=== PATIENT | male | born 1960 | race African-American/Black ===

== ENCOUNTER 2018-12-27 08:59 | Emergency (ER) | payer SELFPAY ==
[~2018-12-27] VITALS: Ht 175.3 cm; Wt 77.0 kg
[2018-12-27 09:42] VITALS: BP 177/87
[2018-12-27] MEDS ORDERED: NALOXONE HCL 1 MG/ML 2ML VIAL IV ONE (09:45)
[2018-12-27 09:54] LABS: CLARITY URINE CLEAR (CLEAR); COLOR URINE YELLOW (YELLOW); KETONES URINE NEGATIVE (NEGATIVE); LEUKOCYTE ESTERASE URINE 1+ (NEGATIVE); NITRITE URINE NEGATIVE (NEGATIVE); OCCULT BLOOD URINE 1+ (NEGATIVE); PROTEIN URINE NEGATIVE (NEGATIVE); SPECIFIC GRAVITY URINE 1.026 (1.005-1.030)
[2018-12-27 09:56] LABS: BASOPHILS % 0.7 % (0.0-2.0); CHLORIDE 104 mEq/L (98-107); EOSINOPHILS % 4.2 % (0.0-5.0); HEMATOCRIT. 41.3 % (42.0-52.0); HEMOGLOBIN. 13.6 g/dL (14.0-18.0); LYMPHOCYTES % 18.7 % (20.0-50.0); MEAN CORPUSCULAR HEMOGLOBIN 30.9 pg (28.0-32.0); MEAN CORPUSCULAR VOLUME 93.8 fL (80.0-94.0); MEAN PLATELET VOLUME 8.1 fl (7.4-10.4); MONOCYTES % 11.6 % (2.0-8.0); NEUTROPHILS % 64.8 % (40.0-76.0); PLATELET 299 x1000/uL (130-400); RED CELL DISTRIBUTION WIDTH 13.4 % (11.6-14.6)
[2018-12-27 10:03] LABS: ETHANOL BLOOD < 10 mg/dL
[2018-12-27 10:14] LABS: *BARBITURATES SCREEN URINE NEGATIVE (NEGATIVE); *COCAINE SCREEN URINE PRESUMTIVE POSITIVE (NEGATIVE)
[2018-12-27 10:15] LABS: *AMPHETAMINES SCREEN URINE NEGATIVE (NEGATIVE); *BENZODIAZEPINES SCREEN URINE NEGATIVE (NEGATIVE); METHADONE URINE SCREEN NEGATIVE (NEGATIVE); OPIATES URINE SCREEN NEGATIVE (NEGATIVE); PHENCYCLIDINE URINE SCREEN NEGATIVE (NEGATIVE)
[2018-12-27 10:16] LABS: CANNABINOID URINE SCREEN NEGATIVE (NEGATIVE)
[2018-12-27] MEDS ORDERED: POTASSIUM CHLORIDE 20MEQ TABLET SR PO ONE (11:00)
== END 2018-12-27 15:07 | disposition left against medical advice (07) ==
LOC: EDBD 09:08 → ER 09:08
DX: G93.40 Encephalopathy, unspecified (principal); N39.0 Urinary tract infection, site not specified; Z79.899 Other long term (current) drug therapy
CPT/HCPCS: 36415; 80053; 80305; 80307; 80329; 81003; 85025; 87186; 99283; J2310

== ENCOUNTER 2019-06-02 15:38 | Emergency (ER) | payer OTHER ==
[~2019-06-02] VITALS: Ht 185.4 cm; Wt 88.0 kg
[2019-06-02 15:48] VITALS: BP 136/88
== END 2019-06-02 17:47 | disposition left against medical advice (07) ==
LOC: ER 16:31
DX: M79.675 Pain in left toe(s) (principal); Z53.21 Procedure and treatment not carried out due to patient leaving prior to being seen by health care provider

== ENCOUNTER 2019-06-02 21:00 | Emergency (ER) | payer MEDICAID, OTHER ==
[~2019-06-02] VITALS: Ht 185.4 cm; Wt 73.0 kg
[2019-06-02 21:01] VITALS: BP 169/95
== END 2019-06-02 22:37 | disposition left against medical advice (07) ==
LOC: ER 22:30
DX: M79.89 Other specified soft tissue disorders (principal); Z53.21 Procedure and treatment not carried out due to patient leaving prior to being seen by health care provider

== ENCOUNTER 2019-06-03 04:38 | Emergency (ER) | payer MEDICAID ==
[~2019-06-03] VITALS: Ht 185.4 cm; Wt 73.0 kg
[2019-06-03 04:41] VITALS: BP 170/86
[2019-06-03] MEDS ORDERED: ACETAMINOPHEN 500MG TABLET PO ONE (06:15)
== END 2019-06-03 08:02 | disposition home or self-care (01) ==
LOC: ER 04:38
DX: S90.32XA Contusion of left foot, initial encounter (principal); M19.90 Unspecified osteoarthritis, unspecified site; F17.210 Nicotine dependence, cigarettes, uncomplicated; V03.90XA Pedestrian on foot injured in collision with car, pick-up truck or van, unspecified whether traffic or nontraffic accident, initial encounter; Y93.89 Activity, other specified; Y92.524 Gas station as the place of occurrence of the external cause
CPT/HCPCS: 73630; 99283

== ENCOUNTER 2022-05-10 05:18 | Emergency (ER) | payer MEDICAID ==
[~2022-05-10] VITALS: Ht 172.7 cm; Wt 78.0 kg
[2022-05-10] MEDS ORDERED: IBUPROFEN 600MG TABLET PO STA (05:35)
[2022-05-10] MEDS ORDERED: IBUP-2029 MT (09:45)
[2022-05-10 11:13] VITALS: BP 149/81
== END 2022-05-10 09:43 | disposition home or self-care (01) ==
LOC: ER 05:18
DX: S06.9X9A Unspecified intracranial injury with loss of consciousness of unspecified duration, initial encounter (principal); Y04.0XXA Assault by unarmed brawl or fight, initial encounter; Y93.89 Activity, other specified; Y92.89 Other specified places as the place of occurrence of the external cause; Y99.8 Other external cause status
CPT/HCPCS: 99284

== ENCOUNTER 2022-11-17 15:28 | Emergency (ER) | payer MEDICAID ==
[~2022-11-17] VITALS: Ht 175.3 cm; Wt 91.0 kg
[~2022-11-17 15:28] MED LIST: IBUP-2029 MT
[2022-11-17] MEDS ORDERED: IBUPROFEN 600MG TABLET PO ONE (15:45)
[2022-11-17] MEDS ORDERED: TETANUS, DIPHTHERIA, PERTUSSIS VAC/PF 0.5ML (>10YR OLD) IM ONE ×2 (15:45→21:45)
[2022-11-17 21:00] VITALS: BP 197/96
[2022-11-17 21:01] LABS: BASOPHILS % 0.7 % (0.0-2.0); EOSINOPHILS % 4.1 % (0.0-5.0); HEMATOCRIT. 36.5 % (42.0-52.0); HEMOGLOBIN. 12.1 g/dL (14.0-18.0); LYMPHOCYTES % 22.7 % (20.0-50.0); MEAN CORPUSCULAR HEMOGLOBIN 30.5 pg (28.0-32.0); MEAN CORPUSCULAR VOLUME 92.1 fL (80.0-94.0); MEAN PLATELET VOLUME 7.3 fl (7.4-10.4); MONOCYTES % 9.3 % (2.0-8.0); NEUTROPHILS % 63.2 % (40.0-76.0); PLATELET 356 x1000/uL (130-400); RED BLOOD CELL COUNT 3.96 mill/uL (4.7-6.1); RED CELL DISTRIBUTION WIDTH 13.7 % (11.6-14.6)
[2022-11-17 21:11] LABS: CHLORIDE 107 mEq/L (98-107)
[2022-11-17] MEDS ORDERED: AMLODIPINE 2.5MG TABLET PO ONE (21:15)
[2022-11-17 21:19] LABS: ETHANOL BLOOD < 10 mg/dL
[2022-11-17] MEDS ORDERED: IBUPROFEN 600MG TABLET PO NR (21:30)
[2022-11-17] MEDS ORDERED: AMLODIPINE 2.5MG TABLET PO NR (21:30)
[2022-11-17] MEDS ORDERED: CEPH500C2 MT (21:50)
== END 2022-11-17 21:54 | disposition home or self-care (01) ==
LOC: ER 15:28
DX: S09.8XXA Other specified injuries of head, initial encounter (principal); S01.81XA Laceration without foreign body of other part of head, initial encounter; I16.0 Hypertensive urgency; I10 Essential (primary) hypertension; Y08.89XA Assault by other specified means, initial encounter; Y93.9 Activity, unspecified; Y92.9 Unspecified place or not applicable; Z86.718 Personal history of other venous thrombosis and embolism
CPT/HCPCS: 36415; 80053; 80320; 85025; 90715; 99284; G0480

== ENCOUNTER 2022-11-26 14:40 | Emergency (ER) | payer MEDICAID ==
[~2022-11-26] VITALS: Ht 177.8 cm; Wt 82.0 kg
[~2022-11-26 14:40] MED LIST changes: +CEPH500C2 MT
[2022-11-26 14:50] VITALS: BP 160/80
== END 2022-11-26 23:34 | disposition home or self-care (01) ==
LOC: ER 14:59
DX: R53.1 Weakness (principal); I10 Essential (primary) hypertension; Z86.718 Personal history of other venous thrombosis and embolism
CPT/HCPCS: 99283